=== PATIENT | female | born 1950 | race Caucasian/White ===

== ENCOUNTER → 2016-03-23 | Outpatient (CLI) | payer OTHER ==
[~2016-03-23] MED LIST: ALBU1AER9 INH; ALLERGY SHOTS SC; ASPEC325 PO; CETI10TA84 PO; CHOL1TAB4 PO; FRRG PO; MONT1TAB3 PO; MULT-506 PO; MULT60CA PO
--- NOTE | 2016-03-23 16:18 | MAMMOGRAPHY REPORT ---
BILATERAL DIGITAL SCREENING MAMMOGRAM WITH CAD: 03/23/2016 CLINICAL HISTORY: Routine screening examination. TECHNIQUE: Bilateral CC, MLO and repeat right cc views with the nipple in profile were obtained. Cu rrent study was also evaluated with a Computer Aided Detection (CAD) system. COMPARISON: Comparison is made to exams dated: 03/20/2014 mammogram, 03/19/2013 mammogram, 03/16/2012 mammogram, and 03/21/2015 mammogram - [facility]. BREAST COMPOSITION: There are scattered areas of fibroglandular density in both breasts. FINDINGS: There are stable asymmetries in the lateral right breast, that are unchanged in size datin g back to at least 03/12/2010, therefore likely benign. No suspicious mass, architectural distortio n or cluster of microcalcifications is seen. IMPRESSION: ACR BI-RADS CATEGORY 1: NEGATIVE There is no mammographic evidence of malignancy. A 1 year screening mammogram is recommended. The p atient will receive written notification of the results. Approximately 10% of breast cancers are not detected with mammography. A negative mammographic repor t should not delay biopsy if a clinically suggestive mass is present. Conchis Frances M.D. ay/:03/23/2016 14:58:00 Mat Man: Sondra MICHELLE(R)(M), [facility] letter sent: Normal 1/2 BI-RADS Code: ACR BI-RADS Category 1: Negative
== END | disposition home or self-care (01) ==
LOC: C.MAMM 10:14
PROVIDERS: ATTEND Obstetrics & Gynecology
DX: Z12.31 Encounter for screening mammogram for malignant neoplasm of breast (principal)

== ENCOUNTER → 2016-03-26 | Outpatient (CLI) | payer OTHER ==
[2016-03-26 11:13] LABS: HEMATOCRIT 39.8 % (37-47); MEAN CELL VOLUME 89.4 fL (80-100); MEAN CORPUSCULAR HEMOGLOBIN 30.8 pg (25-34); MEAN CORPUSCULAR HGB CONC 34.4 g/dl (32-36); MEAN PLATELET VOLUME 10.3 fL (7.4-10.4); PLATELET COUNT 239 K/uL (130-400); RED BLOOD COUNT 4.45 M/uL (4.2-5.4); WHITE BLOOD COUNT 7.47 K/uL (4.8-10.8)
== END | disposition home or self-care (01) ==
LOC: C.LABBC 08:37
PROVIDERS: ATTEND Orthopaedic Surgery Sports Medicine
DX: T84.59XA Infection and inflammatory reaction due to other internal joint prosthesis, initial encounter (principal); Y83.1 Surgical operation with implant of artificial internal device as the cause of abnormal reaction of the patient, or of later complication, without mention of misadventure at the time of the procedure

== ENCOUNTER → 2016-04-09 | Outpatient (CLI) | payer OTHER ==
[2016-04-09 14:02] LABS: SYNOVIAL FLUID APPEARANCE CLOUDY; SYNOVIAL FLUID COLOR STRAW; SYNOVIAL FLUID MONONUC RELAT 36.2 %; SYNOVIAL FLUID POLYNUC RELAT 63.8 %
== END | disposition home or self-care (01) ==
LOC: C.LABBC 10:34
PROVIDERS: ATTEND Orthopaedic Surgery Sports Medicine
DX: T84.84XA Pain due to internal orthopedic prosthetic devices, implants and grafts, initial encounter (principal); X58.XXXA Exposure to other specified factors, initial encounter

== ENCOUNTER → 2016-07-20 | Outpatient (CLI) | payer OTHER ==
[2016-07-20 19:28] LABS: LYME DISEASE AB IGG NEG (NEG); LYME DISEASE AB IGM NEG (NEG)
== END | disposition home or self-care (01) ==
LOC: C.LABBFT 11:41
PROVIDERS: ATTEND Internal Medicine
DX: M25.469 Effusion, unspecified knee (principal)

== ENCOUNTER → 2016-09-24 | Outpatient (CLI) | payer OTHER ==
[2016-09-24 12:24] LABS: URINE APPEARANCE CLEAR (CLEAR); URINE BILIRUBIN NEG (NEG); URINE COLOR YELLOW; URINE EPITHELIAL CELL AUTO 20-30 /lpf (0-5); URINE NITRITE NEG (NEG); URINE SPECIFIC GRAVITY 1.018 (1.000-1.030); UROBILINOGEN NEG (NEG); ZZUR CULT IF INDIC CLEAN CATCH NO
[2016-09-24 12:34] LABS: BASO % 0.4 %; BASO ABS # 0.04 K/uL (0-0.2); COMPLETE YES; EOS % 2.4 %; HEMATOCRIT 41.7 % (37-47); IG% 0.4 %; LYMPH % 18.9 %; LYMPH ABS # 2.15 K/uL (1.2-3.4); MEAN CELL VOLUME 92.5 fL (80-100); MEAN CORPUSCULAR HEMOGLOBIN 30.8 pg (25-34); MEAN CORPUSCULAR HGB CONC 33.3 g/dl (32-36); MEAN PLATELET VOLUME 10.1 fL (7.4-10.4); MONO % 6.1 %; NEUT % 71.8 %; PLATELET COUNT 236 K/uL (130-400); RED BLOOD COUNT 4.51 M/uL (4.2-5.4); WHITE BLOOD COUNT 11.39 K/uL (4.8-10.8)
[2016-09-24 12:35] LABS: MANUAL MICROSCOPIC REQUIRED? NO; REVIEW REQ? NO
[2016-09-24 12:45] LABS: ALT/SGPT 44 U/L (12-78); AST/SGOT 14 U/L (15-37); BLOOD UREA NITROGEN 17 mg/dl (7-18); BUN/CREATININE RATIO 27.7 (10-20); CALCIUM 9.2 mg/dl (8.5-10.1); CARBON DIOXIDE 29 mmol/L (21-32); CHLORIDE 104 mmol/L (98-107); GLUCOSE 96 mg/dl (70-99); POTASSIUM 4.2 mmol/L (3.5-5.1); SODIUM 140 mmol/L (136-145)
[2016-09-24 12:46] LABS: ALKALINE PHOSPHATASE 77 U/L (45-117)
[2016-09-24 12:58] LABS: LYME DISEASE AB IGG NEG (NEG)
[2016-09-24 13:04] LABS: LYME DISEASE AB IGM NEG (NEG)
== END | disposition home or self-care (01) ==
LOC: C.LABBFT 10:52
PROVIDERS: ATTEND Physician Assistant Medical
DX: M79.1 Myalgia (principal)

== ENCOUNTER → 2017-03-18 | Outpatient (CLI) | payer OTHER ==
--- NOTE | 2017-03-18 13:26 | DIAGNOSTIC IMAGING REPORT ---
ULTRASOUND OF THE PELVIS CLINICAL HISTORY: Pelvic pain. COMPARISON STUDY: No priors. TECHNIQUE: Real-time, grayscale, and color flow sonography of the pelvis is performed both transabdominally and endovaginally. Images are reviewed in the transverse and longitudinal planes. FINDINGS: Uterus: The uterus is normal in size and echotexture, measuring 7.2 x 4.6 x 6.1 cm. Endometrium: The endometrium is normal in appearance, and the endometrial stripe is normal in thickness measuring up to 0.3 cm. Ovaries: The ovaries were not visualized. Pelvis: There is no free fluid in the cul-de-sac. No concerning adnexal lesion is seen. IMPRESSION: 1. Unremarkable sonographic assessment of the uterus. 2. The ovaries were not identified. No adnexal lesion was seen. Electronically signed by: Leonid Redmond M.D. 03/18/2017 1:25 PM Dictated Date/Time: 03/18/2017 1:23 PM
== END | disposition home or self-care (01) ==
LOC: C.ULTR 12:18
PROVIDERS: ATTEND Internal Medicine
DX: R10.2 Pelvic and perineal pain (principal)

== ENCOUNTER → 2017-04-14 | Outpatient (CLI) | payer OTHER ==
--- NOTE | 2017-04-15 14:59 | MAMMOGRAPHY REPORT ---
BILATERAL DIGITAL SCREENING MAMMOGRAM TOMOSYNTHESIS WITH CAD: 04/14/2017 CLINICAL HISTORY: Routine screening. Patient has no complaints. TECHNIQUE: Breast tomosynthesis in addition to standard 2D mammography was performed. Current study was also evaluated with a Computer Aided Detection (CAD) system. COMPARISON: Comparison is made to exams dated: 03/23/2016 mammogram, 03/21/2015 mammogram, 03/20/2014 m ammogram, 03/19/2013 mammogram, 03/15/2011 mammogram, and 03/16/2012 mammogram - [facility] enter. BREAST COMPOSITION: There are scattered areas of fibroglandular density in both breasts. FINDINGS: No suspicious masses, calcifications, or areas of architectural distortion are noted in ei ther breast. There has been no significant interval change compared to prior exams. Asymmetry in the right lateral breast is stable dating back to at least the 2009 exam. IMPRESSION: ACR BI-RADS CATEGORY 2: BENIGN There is no mammographic evidence of malignancy. A 1 year screening mammogram is recommended. The pa tient will receive written notification of the results. Approximately 10% of breast cancers are not detected with mammography. A negative mammographic report should not delay biopsy if a clinically suggestive mass is present. Farnaz Haley M.D. /:04/14/2017 14:56:56 Galvanizing Pot Runner: Mckenzie Restrepo M, [facility] letter sent: Normal 1/2 BI-RADS Code: ACR BI-RADS Category 2: Benign
== END | disposition home or self-care (01) ==
LOC: C.MAMM 14:21
PROVIDERS: ATTEND Obstetrics & Gynecology
DX: Z12.31 Encounter for screening mammogram for malignant neoplasm of breast (principal)

== ENCOUNTER → 2017-05-19 | Outpatient (CLI) | payer OTHER | END | disposition home or self-care (01) | LOC: C.PAPS 08:19 | PROVIDERS: ATTEND Obstetrics & Gynecology | DX: Z01.419 Encounter for gynecological examination (general) (routine) without abnormal findings (principal) ==

== ENCOUNTER 2019-04-25 10:39 | Observation (INO) ==
--- NOTE | 2019-04-04 10:53 | PAT Medication Instructions ---
Medication Instructions Date of Service April 04, 2019 Home Medications Medication Instructions Recorded albuterol sulfate 90 mcg/actuation 2 puffs INH Q4H PRN #8.5 gm 03/02/19 aerosol inhaler PreserVision AREDS 2 cap PO HS albuterol sulfate 90 mcg/actuation aerosol inhaler 2 puffs INH Q4H PRN L.acid-B.bifidum-B.animal-FOS [Probiotic Complex] 100 mg PO DAILY L5mthf Folate 1 cap PO DAILY P.Seriane 1 dose PO DAILY amino acids 1 ea PO DAILY cholecalciferol (vitamin D3) [Vitamin D3] 5,000 unit PO DAILY coenzyme Q10 [CoQ-10] 100 mg PO DAILY montelukast 10 mg PO QPM telmisartan 20 mg PO QDL STOP taking 2 weeks before surgery If surgery is within 2 weeks, stop taking as soon as possible. PreserVision AREDS 2 cap PO HS P.Seriane 1 dose PO DAILY coenzyme Q10 [CoQ-10] 100 mg PO DAILY amino acids 1 ea PO DAILY DO NOT take the morning of surgery L5mthf Folate 1 cap PO DAILY cholecalciferol (vitamin D3) [Vitamin D3] 5,000 unit PO DAILY telmisartan 20 mg PO QDL Take morning of surgery OTHERWISE NOTHING TO EAT OR DRINK AFTER MIDNIGHT: albuterol sulfate 90 mcg/actuation aerosol inhaler 2 puffs INH Q4H PRN (if needed, and bring with you to the hospital) Take evening before surgery albuterol sulfate 90 mcg/actuation aerosol inhaler 2 puffs INH Q4H PRN (if needed) montelukast 10 mg PO QPM Other Notes If you have any questions please call us at [phone] or [phone] or [phone] or [phone]
--- NOTE | 2019-04-04 11:22 | Anesthesiology Consultation ---
Date of Service April 04, 2019 Assessment & Plan (1) Encounter for pre-operative examination: Chart Review Chart Review: Acceptable Risk for Surgery (pending T&S and sx ordered ESR/CRP ) and Patient seen in Pre Admission Testing During PAT appt- patient was found to be in new onset a fib- rate controlled and patient asymptomatic. She was transferred to ER for further evaluation and treatment. Cardio clearance was needed prior to surgery. Pt was started on Eliquis in ER. Seen by cardio 04/06/2019 =" patient is an acceptable surgical risk to proceed with surgery as scheduled. She will be having spinal anesthesia, she was advised to hold Eliquis x3 days leading up to surgery. Resume Eliquis postop when hemostasis allows. There is no further need for cardiac work-up at this time" Awaiting T&S, ESR, CRP (was not done in ER with other pre op testing; will try to have patient get done prior to surgery- if patient unable- will need to order DOS) Teaching & Discussion Pre-Anesthesia Teaching/Discussion Notes: Instructed NPO after midnight before surgery,except medications with 15 cc of water. Medication instructions provided according to the PAT guidelines. History Surgery Operation Date: 04/25/19 12:30 Proposed Procedures p Right Total Knee Replacement - Augustine Wilson MD Height/Weight Height: 5 ft 2 in Weight: 95.2 kg Allergies Allergy/AdvReac Type Severity Reaction Status Date / Time dog dander Allergy Unknown ASTHMA Verified 04/06/19 08:40 No Known Drug Allergies Allergy Unknown Verified 04/06/19 08:40 nut - unspecified Allergy Unknown TREE Verified 04/06/19 08:40 NUTS,PEANUTS-UNKNOWN milk AdvReac Mild ABD Verified 04/06/19 08:40 CRAMPING BLOATING mushroom AdvReac Mild Verified 04/06/19 08:40 soy AdvReac Mild ABDOMINAL Verified 04/06/19 08:40 PAIN sulfite AdvReac Mild COUGH Verified 04/06/19 08:40 wheat AdvReac Mild ABD Verified 04/06/19 08:40 CRAMPING,BLOATED Dust Allergy Severe DUST,RAGWEED-RUNNY Uncoded 04/06/19 08:40 NOSE,SOB Medications Home Medications Medication Instructions Recorded Confirmed Last Taken PreserVision AREDS 2 cap PO HS 04/12/18 04/06/19 04/22/18 albuterol sulfate 90 mcg/actuation 2 puffs INH Q4H PRN #8.5 gm 03/02/19 04/06/19 Unknown aerosol inhaler L.acid-B.bifidum-B.animal-FOS 100 mg PO DAILY 04/02/19 04/06/19 Unknown [Probiotic Complex] L5mthf Folate 1 cap PO DAILY 04/02/19 04/06/19 Unknown P.Seriane 1 dose PO DAILY 04/02/19 04/06/19 Unknown amino acids 1 ea PO DAILY 04/02/19 04/06/19 Unknown cholecalciferol (vitamin D3) 5,000 unit PO DAILY 04/02/19 04/06/19 Unknown [Vitamin D3] coenzyme Q10 [CoQ-10] 100 mg PO DAILY 04/02/19 04/06/19 Unknown montelukast 10 mg PO QPM 04/02/19 04/06/19 Unknown telmisartan 20 mg PO QDL 04/02/19 04/06/19 Unknown apixaban 5 mg tablet 5 mg PO Q12H #180 tab 04/06/19 04/06/19 Unknown fluticasone furoate 100 See Rx Instructions .ROUTE .COMPLEX 04/06/19 04/06/19 Unknown mcg-vilanterol 25 mcg/dose inhalation powder loratadine 10 mg tablet 10 mg PO DAILY 04/06/19 04/06/19 Unknown Past Medical History Medical History (Updated 04/09/19 @ 11:28 by Katlyn Blackwood PA-C) Acid reflux (Chronic) diet controlled Atrial fibrillation Dx'ed during PAT appt on 04/04/19 Bilateral sensorineural hearing loss (Chronic) Hyperlipidemia (Chronic) Pt denies Hypertension (Chronic) Impaired fasting glucose (Chronic) Pt denies Kidney stones (Chronic) No current issues; no surgery needed in past Macular degeneration of both eyes (Chronic) Obstructive sleep apnea (Chronic) no machine Osteoarthritis (Chronic) Osteopenia (Chronic) Peptic ulcer disease hx +10 years ago Reactive airway disease (Chronic) Aggrevated by environmental allergies- uses inhaler occ when sick. 04/04/19 CXR shows hyperinflation suggested of underlying emphysema or other obstructive lung disease Exercise / Class Metabolic Activity III < 4 Walking/Shop/Light housework (one flight of stairs- mild SOB - no chest pain ) Past Family History Family History Son Family history of diabetes mellitus Other No family history of adverse response to anesthesia Past Surgical History Surgical History History of cardiac cath at least 10 yrs ago- no stents needed History of carpal tunnel release of both wrists History of cataract surgery bilateral History of section x2 History of cholecystectomy History of colonoscopy History of esophagogastroduodenoscopy (EGD) History of removal of cyst between shoulders History of tonsillectomy and adenoidectomy History of total left knee replacement (TKR) History of wisdom tooth extraction Past Anesthesia History No Family Hx of Anesthesia Complications With WTE - had issues waking up- was done in office- almost transferred to ER but did eventually wake up. Since that time- did have ariel- was slow to wake but no prolonged intubation or ICU stay. No other anesthesia issues History of PONV No Hx of PONV and Hx of Motion Sickness (only when reading in car ) Social History Smoking Status: Never smoker Do You Dip or Chew Tobacco: No Hx Alcohol Use: Yes Alcohol type: beer and wine alcohol intake frequency: holidays/special occasions only Hx Substance Use: No substance use type: does not use Review of Systems Reflux controlled. Cough- x 2-3 weeks- resolving. Patient denies chest pain, shortness of breath, significant, dyspnea on exertion, wheezing, palpitations. No hx of seizures, stroke, CT. No hx of blood clots or blood transfusions Physical Exam Vital Signs VITALS BP 127/90 (usually well controlled- including diastolically at home) P 81 TEMP 97.8 SP02 96% RESP 16 Constitutional no acute distress ENMT Mouth: no TMJ clicking Thyromental Distance: > or= 3.5 Finger Breadths (3.5) Mallampati Class: III Two molars back left bottom teeth missing. Cavity filling to top front tooth. Caps and crowns to molars Neck + thick neck and + limited neck extension (minimal) Respiratory normal respiratory effort; no respiratory distress Auscultation: lungs clear to auscultation bilaterally; no wheezes Cardiovascular Heart Sounds: no murmur Vessels: no carotid bruit Irregularly irregular HR Musculoskeletal Spine: no pain with cervical ROM No significant LE edema Neurologic moves all extremities Psychiatric Orientation: alert Testing Laboratory Results Laboratory Tests 04/04/19 04/04/19 04/04/19 12:05 12:05 12:05 WBC 8.97 Hgb 14.9 Hct 43.2 Plt Count 261 PT 10.9 INR 1.1 APTT 27.6 Sodium 141 Potassium 3.2 L Chloride 109 H Carbon Dioxide 26 BUN 13 Creatinine 0.66 Glucose 98 TSH 0.758 Electrocardiogram Date: 04/04/19 Findings: + AFIB @ (94) Chest X-Ray Date: 04/04/19 Cardiomegaly with mild volume overload. No cody pulmonary edema or advanced congestive change. Hyperinflation could suggest underlying emphysema or other obstructive lung disease. Atherosclerosis of the aortic arch. (CXR done in ER after patient was diagnosed with a fib- pt asymptomatic- unsure how long she has been in a fib) Echocardiogram Date: 04/06/19 EF: 55 to 60% LV Function: normal RWMA: + none Valvular Disease: + no significant valvular disease (However valves were not well seen) No significant LVH visualized. No significant diastolic dysfunction suggested. Stress Test Date: 01/31/18 Type: Stress echo Resting EF: 55% Resting LV Function: normal Resting RWMA: + none and + pertinent finding ( Mild concentric LVH) Valvular Disease: no significant valvular disease Negative exercise stress echo for ischemia at 99% MPHR. Negative exercise stress EKG for ischemia at 99% MPHR. Cardiac Catheterization Date: 09/29/05 Normal coronary arteries. Angiographically normal vessels. (attempted to get cath report- unable- information was obtained from 04/06/19 cardio note)
--- NOTE | 2019-04-04 14:40 | Electrocardiogram Report ---
Test Reason : Blood Pressure : / mmHG Vent. Rate : 094 BPM Atrial Rate : 202 BPM P-R Int : 000 ms QRS Dur : 084 ms QT Int : 374 ms P-R-T Axes : 000 021 043 degrees QTc Int : 467 ms Atrial fibrillation Abnormal ECG When compared with ECG of 01-APR-2015 09:08, Atrial fibrillation has replaced Sinus rhythm Confirmed by Kory Sow ([id number]) on 04/04/2019 2:39:35 PM Referred By: Augustine Wilson Confirmed By:Kory Sow
[~2019-04-25 10:39] MED LIST changes: +ACETAMINOPHEN 500 MG TAB PO SCH; -ALBU1AER9 INH; -ALLERGY SHOTS SC; -ASPEC325 PO; +BUPIVACAINE 0.5 % 5 MG/1 ML PF 10ML VIAL ONE; +BUPIVACAINE LIPOSOME/PF 266 MG, BUPIVACAINE/EPINEPHRINE 50 ML, SODIUM CHLORIDE 0.9% 30 ... INFIL SCH; +BUPIVACAINE/EPINEPHRINE 0.25% 1:200,000 30 ML VIAL ONE; +CEFAZOLIN 2000MG 2,000 MG/15 ML SYR IV SCH; -CETI10TA84 PO; -CHOL1TAB4 PO; +DEXAMETHASONE SOD INJ 4 MG/ML VIAL ONE; +FAMOTIDINE 20 MG TAB PO SCH; -FRRG PO; +GABAPENTIN 300 MG CAP PO SCH; +LR 500ML BOLUS, THEN 15ML/HR IV SCH; +LR 60ML/HR IV SCH; +METOCLOPRAMIDE HCL 10 MG TABLET PO SCH; -MONT1TAB3 PO; -MULT-506 PO; -MULT60CA PO; +TRANEXAMIC ACID 1,000 MG **IV Intra-op IV SCH
[2019-04-25] MEDS ORDERED: MIDAZOLAM HCL 1 MG/ML 2ML VIAL ONE ×2 (12:50→14:09)
[2019-04-25] MEDS ORDERED: ONDANSETRON INJ 2 MG/ML 2 ML VIAL ONE (12:50)
[2019-04-25] MEDS ORDERED: LIDOCAINE HCL 2% 2 ML VIAL/AMP(20MG/ML) INFIL ONE (12:50)
[2019-04-25] MEDS ORDERED: PROPOFOL IV EMULSION 10 MG/ML 20 ML VIAL IV ONE ×2 (12:50→14:59)
[2019-04-25] MEDS ORDERED: fentaNYL citrate 100 MCG/2 ML VIAL ONE (12:50)
[2019-04-25] MEDS ORDERED: BUPIVACAINE/EPINEPHRINE 0.25% 1:200,000 30 ML VIAL ONE (12:56)
[2019-04-25] MEDS ORDERED: SODIUM CHLORIDE 0.9% PF 50 ML VIAL ONE (12:56)
[2019-04-25] MEDS ORDERED: BUPIVACAINE LIPOSOME 1.3% 266 MG/20 ML VIAL ONE (12:57)
[2019-04-25] MEDS ORDERED: BACITRACIN INJ 50,000 UNIT VIAL ONE (12:57)
[2019-04-25] MEDS ORDERED: ePHEDrine sulfate 50 MG/ML AMP IV PRN (13:02)
[2019-04-25] MEDS ORDERED: fentaNYL citrate 100 MCG/2 ML VIAL IV PRN (13:02)
[2019-04-25] MEDS ORDERED: ATROPINE SULFATE 0.1 MG/ML 10ML SYR IV PRN (13:02)
[2019-04-25] MEDS ORDERED: ONDANSETRON INJ 2 MG/ML 2 ML VIAL IV PRN ×2 (13:02→16:21)
--- NOTE | 2019-04-25 13:16 | History & Physical Bridge Note ---
Date of Service April 25, 2019 History & Physical Bridge Note I have examined the patient, reviewed the History & Physical and in the interval since the performance of the History & Physical I have noted the following changes of clinical significance: no changes noted
[2019-04-25] MEDS ORDERED: PHENYLEPHRINE HCL 10 MG/ML VIAL ONE (15:08)
--- NOTE | 2019-04-25 15:10 | Post Operative Brief Note ---
PG Immediate Post Op with CF Date of Surgery April 25, 2019 Pre & Post Diagnosis Operation Date: 04/25/19 12:30 Pre-Op Diagnosis: Right Knee Degenerative Joint Disease Post-Op Diagnosis: Right Knee Degenerative Joint Disease I identified the patient and participated in the time-out.: Yes Procedure Operation Date: 04/25/19 12:30 Actual Procedures p Right Total Knee Replacement(Right) - Augustine Wilson MD Surgeon Augustine Wilson MD Welcome Wagon Host/Hostess Gamal, PAC Estimated Blood Loss 50 Findings Consistent with Post-Op Diagnosis Specimens Specimen Description: Permanent A: Right Knee Bone and Tissue Drains Samuels Catheter (inserted prior to start of procedure by PA without difficulty) Anesthesia Type Spinal MAC Disposition Accompanied Patient To Recovery: No Disposition: Recovery Room
--- NOTE | 2019-04-25 15:40 | XRay Report ---
XR knee RT 1 or 2V routine HISTORY: 68 years-old Female Surgical Post Op right knee total joint arthroplasty COMPARISON: Knee radiographs 03/29/2019 TECHNIQUE: 2 views of the right knee FINDINGS: Right knee total joint arthroplasty and patella resurfacing demonstrates satisfactory alignment witho ut acute fracture or retained foreign body. Anterior midline skin kevin are noted along with expect ed postsurgical soft tissue swelling and deep tissue air with surgical drainage catheter. IMPRESSION: Right knee total joint arthroplasty and patella resurfacing with expected postoperative f indings. ACT 112: Negative or not required by law. The above report was generated using voice recognition software. It may contain grammatical, syntax o r spelling errors. Electronically signed by: Fox Garcia M.D. 04/25/2019 3:38 PM
--- NOTE | 2019-04-25 15:50 | Anesthesiology Progress Note ---
Date of Service April 25, 2019 Anesthesia Post Procedure Vital Signs Vital Signs: Temp Pulse Pulse Resp BP BP Pulse Ox 04/25/19 15:45 82 15 116/72 95 04/25/19 15:35 87 20 123/65 96 04/25/19 15:25 83 18 118/62 97 04/25/19 15:17 37.2 C 94 H 18 106/63 93 04/25/19 11:12 36.7 C 80 18 150/90 H 97 Pain Intensity Right Knee: Pain Intensity: 0 Transfer of Care Handoff Completed per policy Notes Mental Status: alert / awake / arousable Patient Amnestic to Procedure: Yes Nausea / Vomiting: adequately controlled Pain: adequately controlled Airway Patency, RR, SpO2: stable & adequate BP & HR: stable & adequate Hydration State: stable & adequate Neuraxial Anesthesia: was administered and sensory block is resolving Anesthetic Complications: no major complications apparent
[2019-04-25] MEDS ORDERED: bisacodyL 10 MG SUPP PR PRN (16:21)
[2019-04-25] MEDS ORDERED: NALOXONE HCL 0.4 MG/1 ML VIAL/CARP IV PRN (16:21)
[2019-04-25] MEDS ORDERED: ALUMINUM/MAGNESIUM SUSP 30 ML UDC PO PRN (16:21)
[2019-04-25] MEDS ORDERED: HYDROmorphone INJ 0.5 MG/0.5 ML SYR IV PRN (16:21)
[2019-04-25] MEDS ORDERED: METOCLOPRAMIDE HCL INJ 5 MG/ML 2 ML VIAL IV PRN (16:21)
[2019-04-25] MEDS ORDERED: MAGNESIUM HYDROXIDE SUSP 30 ML UDC PO PRN (16:21)
[2019-04-25] MEDS ORDERED: ALBUTEROL HFA 8 GM INHALER INH PRN (16:27)
--- NOTE | 2019-04-25 17:39 | Operative Report ---
Post Operative Report Pre & Post Diagnosis Operation Date: 04/25/19 12:30 Pre-Op Diagnosis: Right Knee Degenerative Joint Disease Post-Op Diagnosis: Right Knee Degenerative Joint Disease I identified the patient and participated in the time-out.: Yes Procedure Operation Date: 04/25/19 12:30 Actual Procedures p Right Total Knee Replacement(Right) - Augustine Wilson MD Surgeon Augustine Wilson MD P D Driver Gamal, PAC Estimated Blood Loss 50 Findings Consistent with Post-Op Diagnosis Operative findings revealed advanced right knee DJD. She had grade 4 [id number] disease in all 3 compartments most severe in the medial side with eburnation of the medial femoral condyle medial tibial plateau. She had osteophytes in all 3 compartments. She had a varus deformity to her knee and about a 15 degree flexion contracture. Fluids 1300 cc. Specimens Right knee sent for pathology. Drains None. Anesthesia Type Spinal MAC Complications none Disposition Accompanied Patient To Recovery: No Disposition: Recovery Room Indications Patient is a 68-year-old female is had a long history of knee problems. She has been through extensive conservative treatment over the years. She had her left knee replaced 4 years ago and is done well from this. She continues be bothered by a progressively persistently painful left knee that got worse this time is gone on. She become less able to ambulate. That was really affecting her lifestyle and she like to proceed with left total knee arthroplasty. Description of Procedure Operative implants consist of: 1. Biomet Vanguard size 62.5 right posterior by femoral component. 2. Size 63 tibial tray. 3. 10 mm posterior box polyethylene insert. 4. 25 x 8 all poly-patella. Patient was taken to the operating room identified and placed on the operating table supine position protectors were properly padded. IV antibiotics arrived by anesthesia team. A spinal anesthetic and abductor canal block had provided holding area. Samuels catheter was placed in sterile fashion. Right thigh turn was then placed in the right lower extremities and prepped and draped in usual sterile fashion. The right leg was elevated and exsanguinated with use of an Esmarch interspace at 300 mmHg. An anterior part of the right knee was then performed through a longitudinal incision centered over the patella. Sharp dissection Through subcutaneous tissue down over the extensor mechanism. Medial parapatellar arthrotomy incision was made. Some subperiosteal dissection was carried out medially but the fat pad was dissected beneath patella tendon. Lateral patellofemoral ligament was released. Patella was subluxated laterally and the knee was flexed. The osteophytes were taken off distal femur. The ACL and PCL were then released from distal femur the tibia subluxated anteriorly. The external tibial alignment jig was then placed in the interface the tibia and adjusted 14 mm medially. Proximal tibial cut was made to move out a millimeter or 2 of bone from most defficient aspect medial to plateau. Tibia was then sized to a size 63. Attention drawn the femur. The distal femur was entered with the sharp drill and the intramedullary canal was suction. Right 5 degree valgus cutting guide was placed. Distal femoral cutting block was pinned in place. Distal femoral cut was made to take an additional 3 mm of bone off distal femur. The femur was then sized to a size 62.5. The AP cutting block was pinned parallel to the epicondylar axis which was 5 degrees of external rotation with anterior cut, anterior chamfer, posterior cut, posterior chamfer cuts were made. Box cutting guide was placed in just slight lateral box cut was made. The knee was flexed. The remnants of the medial and lateral menisci were excised. The osteophytes were taken off the posterior aspect of the femur. There was a large loose body that which was removed from the posterior medial side of the knee. The trial femoral component was placed. The tibial tray was pinned in maximum external rotation and the drill and stem punch were used to create defect in proximal tip for the tibial tray. Knee was then trialed and the 10 mm insert fit most appropriately. Attention drawn the patella. Patella was cleaned of soft tissues. Patella thickness measured 18 mm in thickness was cut down to 12. Size a size 25 patella. Locals were drilled for 25 patella. The lateral osteophyte is moved. Patella button was placed. Knee was taken through range of motion and the patella tracked nicely with no thumbs test. Attention drawn to placing the permanent components. All trial components were removed. Bone plug was placed in the distal femur limit blood loss put a double batch Pal[place]os G cement was mixed. BiomSynlogicguard size 62.5 right posterior by femoral component, size 63 tibial tray, a 10 mm p osterior box polyethylene insert, and a 25 x 8 all poly-patella then cement in place. Knees brought under full extension until cement hardened. Final cement check was then performed. Pericapsular tissues were injected with total 100 cc of combination of 20 cc of Exparel, 30 cc of normal saline, 50 cc of quarter percent Marcaine with epinephrine. Patient did receive 1 g tranexamic acid. The tourniquet was then let down for final tourniquet time of 59 minutes. Hemostasis assured use electrocautery. Wounds once again irrigated. The extensor mechanism then closed with combination 1 PDS suture #1 Vicryl suture in [id number] fashion. Extensor mechanism checked found to be intact the subcutaneous tissue then closed with 2 Dexon suture in a buried interrupted fashion skin was closed skin kevin. Leg was then cleaned dried and sterile dressing applied Xeroform, 4 x 4's, sterile cast padding, Ron bandage were applied. Patient then transferred to the recovery in stable condition. Patient tolerated procedure well no complications. I attest to the content of the Intraoperative Record and any orders documented therein. Any exceptions are noted below.
[2019-04-25] MEDS: FERROUS GLUCONATE 324 MG TAB PO SCH (18:46)
[2019-04-25] MEDS: ASCORBIC ACID 500 MG TAB PO SCH (18:46)
[2019-04-25] MEDS: KETOROLAC TROMETHAMINE 15 MG/ML VIAL IV SCH ×2 (18:46→22:22)
[2019-04-25] MEDS: SODIUM CHLORIDE 0.9% 1000ML 1,000 ML IV SCH (19:05)
[2019-04-25] MEDS: OXYCODONE HCL IR 5 MG TAB (IMMEDIATE RELEASE) PO PRN ×2 (19:37→20:31)
[2019-04-25] MEDS ORDERED: TRANEXAMIC ACID / 0.7% NACL 1,000 MG/100 ML BAG IV SCH (21:15)
[2019-04-25] MEDS: DOCUSATE SODIUM 100 MG CAP PO SCH (21:22)
[2019-04-25] MEDS: SENNA 8.6 MG TAB PO SCH (21:24)
[2019-04-25] MEDS: MONTELUKAST SODIUM 10 MG TABLET PO SCH (21:24)
[2019-04-25] MEDS: CEROVITE ADV FORMULA TAB PO SCH (21:24)
[2019-04-25] MEDS: ACETAMINOPHEN 500 MG TAB PO SCH (21:26)
[2019-04-25] MEDS: CEFAZOLIN 2000MG 2,000 MG/15 ML SYR IV SCH (21:28)
[2019-04-26] MEDS: CEFAZOLIN 2000MG 2,000 MG/15 ML SYR IV SCH (05:18)
[2019-04-26] MEDS: SODIUM CHLORIDE 0.9% 1000ML 1,000 ML IV SCH (05:19)
[2019-04-26] MEDS: KETOROLAC TROMETHAMINE 15 MG/ML VIAL IV SCH ×4 (05:19→23:21)
[2019-04-26] MEDS: ACETAMINOPHEN 500 MG TAB PO SCH ×3 (05:19→21:47)
[2019-04-26 07:26] LABS: Hematocrit (blood only) 34.3 % (37-47); Hemoglobin 11.8 g/dL (12.0-16.0); Mean Corpuscular Hemoglobin 31.8 pg (25-34); Mean Corpuscular Hgb Conc 34.4 g/dL (32-36); Mean Corpuscular Volume 92.5 fL (80-100); Mean Platelet Volume 9.9 fL (7.4-10.4); Platelet Count 200 K/uL (130-400); RDW Coefficient of Variation 13.5 % (11.5-14.5); RDW Standard Deviation 45.8 fL (36.4-46.3); Red Blood Count 3.71 M/uL (4.2-5.4); White Blood Count 12.69 K/uL (4.8-10.8)
--- NOTE | 2019-04-26 07:43 | Anesthesiology Progress Note ---
Date of Service April 26, 2019 Anesthesia Post Procedure Vital Signs Vital Signs: Temp Pulse Pulse Resp BP BP Pulse Ox 04/26/19 07:12 36.6 C 66 16 116/69 95 04/26/19 02:55 36.7 C 80 16 118/71 96 04/25/19 23:44 36.7 C 82 16 123/68 94 04/25/19 20:00 36.7 C 89 20 151/84 H 96 04/25/19 18:20 36.6 C 85 18 139/74 95 04/25/19 17:22 36.4 C L 71 16 118/71 98 04/25/19 16:55 36.5 C 79 17 120/76 97 04/25/19 16:20 36.7 C 81 18 116/73 97 04/25/19 16:00 82 14 123/65 98 04/25/19 15:45 36.4 C L 82 15 116/72 95 04/25/19 15:35 87 20 123/65 96 04/25/19 15:25 83 18 118/62 97 04/25/19 15:17 37.2 C 94 H 18 106/63 93 04/25/19 11:12 36.7 C 80 18 150/90 H 97 Pain Intensity Right Knee: Pain Intensity: 4 Notes Mental Status: alert / awake / arousable and participated in evaluation Patient Amnestic to Procedure: Yes Nausea / Vomiting: adequately controlled Pain: adequately controlled Airway Patency, RR, SpO2: stable & adequate BP & HR: stable & adequate Hydration State: stable & adequate Neuraxial Anesthesia: was administered and sensory block resolved Anesthetic Complications: no major complications apparent and Pt Satisfied with anesthetic care
[2019-04-26 08:01] LABS: BUN Creatinine Ratio 15.5 (10-20); Est GFR (African American) 101.7; Est GFR (Non-African American) 87.8
[2019-04-26] MEDS ORDERED: [UNRECOGNIZED DRUG - OTHER] PO SCH (09:00)
[2019-04-26] MEDS ORDERED: NON-FORMULARY MEDICATION (Coenzyme Q10 [Coq-10] 100 MG) PO SCH (09:00)
[2019-04-26] MEDS ORDERED: AMINO ACIDS PO SCH (09:00)
[2019-04-26] MEDS ORDERED: [UNRECOGNIZED DRUG - OTHER] PO SCH (09:00)
[2019-04-26] MEDS: FLUTICASONE/VILANTEROL 100/25MCG 14 PUFFS/INHALER INH SCH (09:34)
[2019-04-26] MEDS: LORATADINE 10 MG TAB PO SCH (09:34)
[2019-04-26] MEDS: ASCORBIC ACID 500 MG TAB PO SCH ×2 (09:34→17:34)
[2019-04-26] MEDS: MULTIVITAMIN TAB PO SCH (09:34)
[2019-04-26] MEDS: DOCUSATE SODIUM 100 MG CAP PO SCH ×2 (09:35→21:46)
[2019-04-26] MEDS: FERROUS GLUCONATE 324 MG TAB PO SCH ×2 (09:35→17:34)
[2019-04-26] MEDS: LACTOBACILLUS ACIDOPHILUS (FLORANEX) TAB PO SCH (09:35)
[2019-04-26] MEDS: CHOLECALCIFEROL 1,000 UNITS 25 MCG TAB PO SCH (09:35)
[2019-04-26] MEDS: TELMISARTAN 20 MG TAB PO SCH (11:47)
[2019-04-26] MEDS: OXYCODONE HCL IR 5 MG TAB (IMMEDIATE RELEASE) PO PRN ×2 (11:53→23:46)
--- NOTE | 2019-04-26 17:50 | Progress Notes ---
DATE: 04/26/2019 SUBJECTIVE: 68-year-old female postop day 1 from a right knee replacement. She is doing pretty well. Pain was really well controlled until therapy; now hurting quite a bit. No chest pain or shortness of breath. Not feeling dizzy or lightheaded. OBJECTIVE: VITAL SIGNS: Temperature 36.5. Vital signs stable. GENERAL: Shows a pleasant, middle-aged female. She is sitting up in bed, looks pretty comfortable. EXTREMITIES: Examination of the right leg reveals the leg to be well aligned. Dressings got a little bit of bloody drainage on it. She can dorsiflex and plantarflex her foot appropriately. She is neurologically intact. LABORATORY DATA: Hemoglobin 11.8. Hematocrit 34.3. Electrolytes are stable. ASSESSMENT: 68-year-old female with a history of atrial fibrillation postop day 1 from a left knee replacement, doing pretty well. Pain is controlled. She is neurologically intact. PLAN: 1. DVT prophylaxis including thigh-high TEDs, SCDs, and we will start back on her Eliquis at a prophylactic dose 24 hours postop, which was today. We will increase it to a full dose in 2 days. 2. PT/OT. Weight bear as tolerated. Left total knee protocol. 3. Pain control, doing well with current pain regimen. 4. Disposition: Plan to discharge to home with some home health once adequately recovered and medically stable.
[2019-04-26] MEDS: APIXABAN 2.5 MG TAB PO SCH (21:46)
[2019-04-26] MEDS: SENNA 8.6 MG TAB PO SCH (21:46)
[2019-04-26] MEDS: MONTELUKAST SODIUM 10 MG TABLET PO SCH (21:46)
[2019-04-26] MEDS: CEROVITE ADV FORMULA TAB PO SCH (21:47)
[2019-04-27] MEDS: ACETAMINOPHEN 500 MG TAB PO SCH ×2 (05:54→12:42)
[2019-04-27] MEDS: KETOROLAC TROMETHAMINE 15 MG/ML VIAL IV SCH ×2 (05:54→12:44)
[2019-04-27 06:54] VITALS: BP 148/83; PULSE 71; TEMP 97.9; O2SAT 92
[2019-04-27] MEDS: FERROUS GLUCONATE 324 MG TAB PO SCH (07:36)
[2019-04-27] MEDS: ASCORBIC ACID 500 MG TAB PO SCH (07:36)
[2019-04-27] MEDS: LORATADINE 10 MG TAB PO SCH (07:37)
[2019-04-27] MEDS: DOCUSATE SODIUM 100 MG CAP PO SCH (07:37)
[2019-04-27] MEDS: FLUTICASONE/VILANTEROL 100/25MCG 14 PUFFS/INHALER INH SCH (07:37)
[2019-04-27] MEDS: LACTOBACILLUS ACIDOPHILUS (FLORANEX) TAB PO SCH (07:38)
[2019-04-27] MEDS: APIXABAN 2.5 MG TAB PO SCH (07:38)
[2019-04-27] MEDS: MULTIVITAMIN TAB PO SCH (07:39)
[2019-04-27] MEDS: CHOLECALCIFEROL 1,000 UNITS 25 MCG TAB PO SCH (07:39)
[2019-04-27] MEDS: OXYCODONE HCL IR 5 MG TAB (IMMEDIATE RELEASE) PO PRN ×2 (07:40→13:40)
--- NOTE | 2019-04-27 08:11 | Progress Notes ---
DATE: 04/27/2019 SUBJECTIVE: A 68-year-old female postop day 2 from a right knee replacement. She is doing pretty well. Having significant bouts of pain intermittently, but really not taking much medicine. Denies any chest pain or shortness of breath. Not feeling dizzy or lightheaded. OBJECTIVE: VITAL SIGNS: Temperature 36.6. Vital signs stable. GENERAL: Shows a pleasant, middle-aged female. She is sitting up in bed, and looks pretty comfortable. EXTREMITIES: Examination of the right leg reveals the leg to be well aligned. Dressing is clean, dry and intact. She can dorsiflex and plantarflex her foot appropriately. She is neurologically intact. ASSESSMENT: A 68-year-old female postop day 2 from right knee replacement, doing reasonably well. Having some moderate amount of pain, but responds to pain meds. She is neurologically intact. PLAN: 1. DVT prophylaxis including thigh-high TEDs, SCDs, and Eliquis. We will keep on a prophylactic dose and discharge increase to full dose. 2. PT/OT. Weight bear as tolerated. Right total knee protocol. 3. Pain control, doing pretty well with current pain regimen. 4. Disposition: Plan to discharge to home with some home health later today.
[2019-04-27] MEDS: TELMISARTAN 20 MG TAB PO SCH (12:39)
--- NOTE | 2019-05-01 14:38 | Discharge Summary (DS) ---
ADMITTING PHYSICIAN AND SURGEON: Dr. Augustine Wilson. ADMITTING DIAGNOSIS: Right knee degenerative joint disease. SURGERY PERFORMED: Right total knee arthroplasty. SECONDARY DIAGNOSES: Hypertension, arthritis, gastroesophageal reflux disease, mild obesity. CONSULTS: None obtained. HISTORY AND PHYSICAL EXAMINATION: Well documented in the patient's chart. HOSPITAL COURSE: The patient was admitted on 04/25/2019 underwent total knee arthroplasty, tolerated the procedure well. There were no complications. She was transferred to the PACU postoperatively and later to the orthopedic floor for further care. She was given Ancef for antibiotic prophylaxis, SATHISH stockings, SCDs for DVT prophylaxis and resumed her Eliquis. Hemoglobin, hematocrit and vital signs were monitored during her hospital stay and remained stable. She did not require any blood transfusions. There were no complications. By postoperative day 2 she was tolerating a regular diet, pain was controlled with oral pain medicine. She was participating in physical therapy. On postop day 2 she was discharged home, set up with home health therapy. She was given printed discharge instructions as well as new prescriptions for extra strength Tylenol and oxycodone. Continue her home medications, continue physical therapy, weightbearing as tolerated, SATHISH stockings. Follow up approximately 2 weeks postop or sooner if there are any problems or concerns.
== END 2019-04-27 14:08 | disposition home health service (06) ==
LOC: ASU 10:39 → 3E 10:39